=== PATIENT | female | born 1955 | race Caucasian/White ===

== ENCOUNTER 2018-05-22 13:40 | Emergency (ER) | payer MEDICARE, MEDICAID ==
[2018-05-22] MEDS ORDERED: Albuterol/Ipratropium 3.0-0.5 MG/3 ML Neb Soln ONE (13:52)
[2018-05-22] MEDS ORDERED: Sodium Chloride 0.9% 10 ML Syringe FLUSH PRN (13:54)
[2018-05-22] MEDS ORDERED: methylPREDNISolone Sodium Succinate 125 MG/2 ML SDV IVPUSH ONE (13:54)
[2018-05-22] MEDS ORDERED: Albuterol/Ipratropium 3.0-0.5 MG/3 ML Neb Soln NEB ONE (14:04)
[2018-05-22 15:01] LABS: ANION GAP 10.9 mmol/L (10-20)
[2018-05-22] MEDS ORDERED: Take Home: Albuterol 6.7 GM Inhaler, 1 Inhaler Pack INH ONE (15:22)
--- NOTE | 2018-05-22 15:27 | EDM.PDOC ---
ED HPI GENERAL MEDICAL PROBLEM - General Chief Complaint: Respiratory Problem Stated Complaint: SOB,BREATHING HEAVY Time Seen by Provider: 05/22/18 13:46 Source of Information: Reports: Patient, Family History Limitations: Reports: No Limitations - History of Present Illness INITIAL COMMENTS - FREE TEXT/NARRATIVE: Patient presents with complaints of shortness of breath and chest pressure. No radiation of pain. Pain does increase on inspiration and movement, as well as with coughing. Denies prior NM or CVA. She does have history of 1-2 packs per day smoking. Denies COPD, asthma. No recent illnesses, fevers, chills. Denies abdominal pain, headache, changes in LOC. No blood in urine or stool. Regular voiding habits. Onset: Today, Sudden Duration: Heavy Location: Reports: Chest Quality: Reports: Pressure Severity: Mild Improves with: Reports: None Worsens with: Reports: Movement Associated Symptoms: Reports: Shortness of Breath - Related Data Allergies Allergy/AdvReac Type Severity Reaction Status Date / Time codeine Allergy Hives Verified 05/22/18 13:56 Home Meds: Home Meds . [No Known Home Meds] 05/22/18 [History] Past Medical History - Past Surgical History GI Surgical History: Reports: Cholecystectomy Social & Family History - Family History Family Medical History: Noncontributory - Tobacco Use Smoking Status *Q: Current Every Day Smoker Years of Tobacco use: 50 Packs/Tins Daily: 1 - Recreational Drug Use Recreational Drug Use: No ED ROS GENERAL - Review of Systems Review Of Systems: See Below Constitutional: Reports: No Symptoms HEENT: Reports: No Symptoms Respiratory: Reports: Shortness of Breath Cardiovascular: Reports: No Symptoms, Chest Pain, Dyspnea on Exertion Endocrine: Reports: Fatigue GI/Abdominal: Reports: Anorexia : Reports: No Symptoms Musculoskeletal: Reports: No Symptoms Skin: Reports: No Symptoms Neurological: Reports: No Symptoms Psychiatric: Reports: No Symptoms Hematologic/Lymphatic: Reports: No Symptoms Immunologic: Reports: No Symptoms ED EXAM, GENERAL - Physical Exam Exam: See Below Exam Limited By: No Limitations General Appearance: Alert, WD/WN, Anxious, Mild Distress Eye Exam: Bilateral Eye: EOMI, Periorbital Changes, PERRL Ears: Normal TMs Course - Vital Signs Last Recorded V/S: Last Vital Signs Temp 36.6 C 05/22/18 13:44 Pulse 86 05/22/18 13:44 Resp 20 05/22/18 13:44 BP 179/87 H 05/22/18 13:44 Pulse Ox 98 05/22/18 13:44 - Orders/Labs/Meds Orders: Active Orders 24 hr Category Date Time Status EKG Documentation Completion [RC] STAT Care 05/22/18 13:54 Active RT Aerosol Therapy [RC] ASDIRECTED Care 05/22/18 14:04 Active Chest w Cont [CT] Stat Exams 05/22/18 13:54 Ordered Saline Lock Insert [OM.PC] Routine Oth 05/22/18 13:54 Ordered Labs: Laboratory Tests 05/22/18 05/22/18 05/22/18 Range/Units 14:10 14:10 14:17 WBC 8.6 (4.0-10.0) x10^3/uL RBC 4.98 (4.00-5.50) x10^6/uL Hgb 15.6 (12.0-16.0) g/dL Hct 46.5 (33.0-47.0) % MCV 93.4 H (78.0-93.0) fL MCH 31.3 (26.0-32.0) pg MCHC 33.5 (32.0-36.0) g/dL RDW Coeff of Tristen 13.5 (10.0-15.0) % Plt Count 285 (130-400) x10^3/uL Neut % (Auto) 66.5 (50.0-80.0) % Lymph % (Auto) 24.6 L (25.0-50.0) % [place] % (Auto) 7.3 (2.0-11.0) % Eos % (Auto) 1.4 (0.0-4.0) % Baso % (Auto) 0.2 (0.2-1.2) % Sodium 137 (136-145) mmol/L Potassium 3.9 (3.5-5.1) mmol/L Chloride 103 (98-107) mmol/L Carbon Dioxide 27 (21-32) mmol/L Anion Gap 10.9 (10-20) mmol/L BUN 12 (7-18) mg/dL Creatinine 1.0 (0.55-1.02) mg/dL Est Cr Clr Drug Dosing 48.43 mL/min Estimated GFR (MDRD) 56 Glucose 113 H (74-106) mg/dL Calcium 8.5 (8.5-10.1) mg/dL Corrected Calcium 8.98 (8.5-10.1) mg/dL Total Bilirubin 0.4 (0.2-1.0) mg/dL AST 10 L (15-37) U/L ALT 19 (14-59) U/L Alkaline Phosphatase 98 (46-116) U/L Creatine Kinase 48 (26-192) U/L POC Troponin I 0.00 (0.00-0.08) ng/mL NT-Pro-B Natriuret Pep 78 (<=125) pg/mL Total Protein 7.2 (6.4-8.2) g/dL Albumin 3.4 (3.4-5.0) g/dL Globulin 3.8 Albumin/Globulin Ratio 0.89 Meds: Medications Discontinued Medications Generic Name Dose Route Start Last Admin Trade Name Freq PRN Reason Stop Dose Admin Albuterol 1 packet 05/22/18 15:22 05/22/18 15:45 Take Home: Albuterol 6.7 Gm, 1 Inh Pack INH 05/22/18 15:23 1 packet ONETIME ONE Administration Albuterol/Ipratropium Confirm 05/22/18 13:52 05/22/18 14:05 Duoneb 3.0-0.5 Mg/3 Ml Administered 05/22/18 13:53 Not Given Dose 3 ml .ROUTE .STK-MED ONE Albuterol/Ipratropium 3 ml 05/22/18 14:04 05/22/18 14:00 Duoneb 3.0-0.5 Mg/3 Ml NEB 05/22/18 14:05 3 ml ONETIME ONE Administration Methylprednisolone Sodium Succinate 125 mg 05/22/18 13:54 05/22/18 14:05 Solu-Medrol IVPUSH 05/22/18 13:55 125 mg ONETIME ONE Administration Sodium Chloride 10 ml 05/22/18 13:54 Saline Flush FLUSH ASDIRECTED PRN Keep Vein Open - Radiology Interpretation Free Text/Narrative:: Chest CT negative for acute process - Re-Assessments/Exams Free Text/Narrative Re-Assessment/Exam: 05/23/18 00:39 breathing much better after administration of duoneb. Departure - Departure Time of Disposition: 15:31 Disposition: Home, Self-Care 01 Condition: Good Clinical Impression: Reactive airway disease with wheezing Qualifiers: Asthma severity: unspecified severity Asthma persistence: unspecified Asthma complication type: uncomplicated Qualified Code(s): J45.909 - Unspecified asthma , uncomplicated - Discharge Information *PRESCRIPTION DRUG MONITORING PROGRAM REVIEWED*: Not Applicable *COPY OF PRESCRIPTION DRUG MONITORING REPORT IN PATIENT ALEXSANDER: Not Applicable Instructions: Steps to Quit Smoking, Sstt-og-Ibbl, Shortness of Breath, Adult, Pefs-si-Uats Referrals: PCP,None [Primary Care Provider] - Forms: ED Department Discharge Additional Instructions: Your labs were all negative for any acute medical conditions. Your CT results will be called or mailed to you. Follow up with your primary doctor as needed for additional shortness of breath symptoms. I am giving you an inhaler for your shortness of breath. Take 2 puffs as needed every 4-6 hours. Visit with your provider whether or not can go. Please call us with any questions or concerns. - Problem List & Annotations (1) Reactive airway disease with wheezing SNOMED Code(s): 761236215440 Code(s): J45.909 - UNSPECIFIED ASTHMA, UNCOMPLICATED Status: Acute Priority: Medium Qualifiers: Asthma severity: unspecified severity Asthma persistence: unspecified Asthma complication type: uncomplicated Qualified Code(s): J45.909 - Unspecified asthma, uncomplicated - Problem List Review Problem List Initiated/Reviewed/Updated: Yes - My Orders Last 24 Hours: My Active Orders 05/22/18 13:54 EKG Documentation Completion [RC] STAT Chest w Cont [CT] Stat Saline Lock Insert [OM.PC] Routine 05/22/18 14:04 RT Aerosol Therapy [RC] ASDIRECTED - Assessment/Plan Last 24 Hours: My Active Orders 05/22/18 13:54 EKG Documentation Completion [RC] STAT Chest w Cont [CT] Stat Saline Lock Insert [OM.PC] Routine 05/22/18 14:04 RT Aerosol Therapy [RC] ASDIRECTED Assessment:: reactive airway disease Plan: Your labs were all negative for any acute medical conditions. Your CT results will be called or mailed to you. Follow up with your primary doctor as needed for additional shortness of breath symptoms. I am giving you an inhaler for your shortness of breath. Take 2 puffs as needed every 4-6 hours. Visit with your provider whether or not can go. Please call us with any questions or concerns.
== END 2018-05-22 15:45 | disposition home or self-care (01) ==
LOC: VM.ED 13:40
DX: J45.909 Unspecified asthma, uncomplicated (principal); F17.210 Nicotine dependence, cigarettes, uncomplicated; Z88.5 Allergy status to narcotic agent
CPT/HCPCS: 36415; 71260; 80053; 82550; 83880; 84484; 85025; 93005; 94640; 96374; 99285; A9270; J2930

== ENCOUNTER 2018-11-13 06:26 | Emergency (ER) | payer MEDICARE, MEDICAID ==
--- NOTE | 2018-11-13 06:43 | EDM.PDOC ---
<John Cruz - Last Filed: 11/13/18 06:48> ED HPI GENERAL MEDICAL PROBLEM - General Chief Complaint: Upper Extremity Injury/Pain Stated Complaint: left upper arm/shoulder pain Time Seen by Provider: 11/13/18 06:42 Source of Information: Reports: Patient, EMS Notes Reviewed, RN, RN Notes Reviewed History Limitations: Reports: No Limitations - History of Present Illness INITIAL COMMENTS - FREE TEXT/NARRATIVE: Patient is brought to the ED at [facility] via EMS after she fell walking into a convenience store. Patient states she tripped and fell on the entry rug of the store. She states she fell onto her left arm/shoulder. No previous injury or trauma. Patient denies any numbness, tingling, or paresthesia to the left upper extremity. She denies any left wrist or elbow pathology. She has full ROM of the left wrist and left elbow. Patient states most of her pain is in the left upper arm versus left shoulder. She is very reluctant to move her LUE. Patient denies any head injury or trauma. Patient denies any neck or back pain. Onset: Today Onset Date: 11/13/18 Left Shoulder Pain Score (Numeric/FACES): 7 - Related Data Allergies Allergy/AdvReac Type Severity Reaction Status Date / Time codeine Allergy Hives Verified 11/13/18 06:27 Home Meds: Home Meds . [No Known Home Meds] 05/22/18 [History] Past Medical History - Past Health History Medical/Surgical History: Denies Medical/Surgical History - Past Surgical History GI Surgical History: Reports: Cholecystectomy Social & Family History - Family History Family Medical History: Noncontributory - Tobacco Use Smoking Status *Q: Current Every Day Smoker Years of Tobacco use: 47 Packs/Tins Daily: 0.5 Review of Systems - Review of Systems Review Of Systems: See Below Constitutional: Denies: Chills, Fever Respiratory: Denies: Shortness of Breath, Cough Cardiovascular: Denies: Chest Pain, Palpitations Musculoskeletal: Reports: Shoulder Pain, Arm Pain, Muscle Pain Skin: Reports: No Symptoms Neurological: Denies: Numbness, Paresthesia, Tingling ED EXAM, GENERAL - Physical Exam Exam: See Below Exam Limited By: No Limitations General Appearance: Alert, No Apparent Distress Head: Atraumatic, Normocephalic Respiratory/Chest: No Respiratory Distress, Lungs Clear, Normal Breath Sounds Cardiovascular: Normal Peripheral Pulses, Regular Rate, Rhythm Peripheral Pulses: 2+: Radial (L), Radial (R) Extremities: Normal Inspection, Arm Pain, Limited Range of Motion (due to pain) Neurological: Alert, Oriented Skin Exam: Warm, Dry, Intact, Normal Color Course - Vital Signs Last Recorded V/S: Last Vital Signs Temp 35.9 C 11/13/18 06:27 Pulse 78 11/13/18 08:17 Resp 19 11/13/18 08:17 BP 152/79 H 11/13/18 08:17 Pulse Ox 94 L 11/13/18 08:17 - Orders/Labs/Meds Orders: Active Orders 24 hr Category Date Time Status Elbow 2V Lt [CR] Stat Exams 11/13/18 08:14 Ordered Shoulder 1V Lt [CR] Stat Exams 11/13/18 06:47 Taken Shoulder 1V Lt [CR] Stat Exams 11/13/18 07:45 Ordered Meds: Medications Discontinued Medications Generic Name Dose Route Start Last Admin Trade Name Kevin PRN Reason Stop Dose Admin Hydromorphone HCl 1 mg 11/13/18 07:21 11/13/18 07:30 Dilaudid IVPUSH 11/13/18 07:22 1 mg ONETIME ONE Administration Lorazepam 1 mg 11/13/18 07:22 11/13/18 07:40 Ativan IVPUSH 11/13/18 07:23 1 mg ONETIME ONE Administration Departure - Departure Disposition: DC/Tfer to [facility] 02 Clinical Impression: Shoulder dislocation - Discharge Information Referrals: PCP,Unknown [Primary Care Provider] - Forms: ED Department Discharge, Interfacility Transfer EMTALA - Problem List Review Problem List Initiated/Reviewed/Updated: Yes - My Orders Last 24 Hours: My Active Orders 11/13/18 07:45 Shoulder 1V Lt [CR] Stat 11/13/18 08:14 Elbow 2V Lt [CR] Stat - Assessment/Plan Last 24 Hours: My Active Orders 11/13/18 07:45 Shoulder 1V Lt [CR] Stat 11/13/18 08:14 Elbow 2V Lt [CR] Stat <Hasmukh Scott W - Last Filed: 11/13/18 08:33> ED TRAUMA EXTREMITY PROCEDURES - Additional/Other Procedure(s) Other (Free Text) Procedure(s): Pt. was given 1 mg dilaudid IV and as well as 1 mg. of ativan in 0.5mg increments. Pt. was placed in the prone position with the L arm over the edge of the bed. 30# of traction was placed pulling the extremity anteriorly as the scapula was manipulated. This was attempted twice for approx. 30 min. each time. The shoulder continued to be dislocated. Attempted the traction/rotation method as well which was unsuccessful. Course - Radiology Interpretation Free Text/Narrative:: interomedial L shoulder dislocation Departure - Departure Time of Disposition: 08:30 - Assessment/Plan Plan: Unable to reduce shoulder. Contacted [facility] in [place]. Dr. Guo accepted the patient in transfer. She will be transported via ground ambulance. Arranged a ride home for her after it is reduced.
[2018-11-13] MEDS ORDERED: HYDROmorphone 1 MG/ML Syringe IVPUSH ONE (07:21)
[2018-11-13] MEDS ORDERED: LORazepam 2 MG/ML SDV IVPUSH ONE (07:22)
--- NOTE | 2018-11-13 08:57 | CR ---
[id number] RAD/RAD Shoulder Left 1V EXAM: RAD Shoulder Left 1V CLINICAL DATA: POST REDUCTION LEFT SHOULDER COMPARISON: CORRELATION IS MADE WITH THE EARLIER EXAM TODAY. FINDINGS: The shoulder is still dislocated.. IMPRESSION: PERSISTENT DISLOCATION. Jose Byers MD 11/13/18 0856 Thank you for allowing us to participate in the care of your patient.
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
--- NOTE | 2018-11-13 09:28 | CR ---
[id number] RAD/RAD Elbow Left 2V EXAM: RAD Elbow Left 2V CLINICAL DATA: TRAUMA COMPARISON: NO PREVIOUS SIMILAR EXAM IS AVAILABLE. FINDINGS: A single oblique lateral view was obtained. No fracture is seen. Consider further exams if needed.. IMPRESSION: LIMITED STUDY. NO FRACTURE IDENTIFIED. Jose Byers MD 11/13/18 0927 Thank you for allowing us to participate in the care of your patient.
== END 2018-11-13 09:00 | disposition short-term general hospital (02) ==
LOC: VM.ED 06:26
DX: S43.005A Unspecified dislocation of left shoulder joint, initial encounter (principal); F17.210 Nicotine dependence, cigarettes, uncomplicated; Z88.5 Allergy status to narcotic agent; W22.8XXA Striking against or struck by other objects, initial encounter; Y93.01 Activity, walking, marching and hiking
CPT/HCPCS: 73020-LT; 73070-LT; 96374; 96375; 99285; J1170; J2060

== ENCOUNTER 2020-07-17 21:52 | Emergency (ER) | payer MEDICARE, MEDICAID ==
[2020-07-17] MEDS ORDERED: Lidocaine 1% 30 ML SDV INJECT ONE (22:06)
--- NOTE | 2020-07-17 22:34 | EDM.PDOC ---
ED HPI GENERAL MEDICAL PROBLEM - General Chief Complaint: Lower Extremity Injury/Pain Stated Complaint: TOENAIL RIPPED OFF Time Seen by Provider: 07/17/20 22:15 Source of Information: Reports: Patient History Limitations: Reports: No Limitations - History of Present Illness INITIAL COMMENTS - FREE TEXT/NARRATIVE: Patient comes emergency department today with complaints of an injury to her right second toenail. This patient is unable to trim her toenails and has not done so for years. She has very long torturous toenails on her bilateral feet. Tonight when she was trying to get into bed she caught 1 of the toenails on the sheets and it pretty much ripped the entire nail plate off the toe. There was no other trauma to the area. Her tetanus is up to date she reports. - Related Data Allergies Allergy/AdvReac Type Severity Reaction Status Date / Time codeine Allergy Hives Verified 07/17/20 22:01 Home Meds: Home Meds . [No Known Home Meds] 05/22/18 [History] Past Medical History - Past Health History Medical/Surgical History: Denies Medical/Surgical History - Past Surgical History GI Surgical History: Reports: Cholecystectomy Social & Family History - Family History Family Medical History: Noncontributory - Tobacco Use Smoking Status *Q: Current Every Day Smoker Years of Tobacco use: 50 Packs/Tins Daily: 0.5 Review of Systems - Review of Systems Review Of Systems: Comprehensive ROS is negative, except as noted in HPI. ED EXAM, GENERAL - Physical Exam Exam: See Below Exam Limited By: No Limitations General Appearance: Alert, WD/WN, No Apparent Distress Respiratory/Chest: No Respiratory Distress Cardiovascular: Normal Peripheral Pulses Extremities: No: Normal Inspection (Examination of the right foot. This foot is in clear hygienic arrest with quite a bit of debris between the toes and just overt dirt. The toenails of all toes of bilateral feet appear to be fungally infected very thick overgrown over the end of the toes some up to 2 cm in length. Some have wrapped around and curled around the end of the toes. There is no acute infectious process. The second toe of the right foot has a very similar presentation of the very overgrowth fungal type toenail that has been completely avulsed from the entire nail plate. Is being held on just by some overgrowth of skin at the distal aspect of the nail matrix. The nail matrix itself is not damage. There is a small amount of bleeding from that area. The toe is very sensitive. There is no overt bony deformity and CMS is intact appropriately.) Neurological: Alert, Oriented Skin Exam: Warm, Dry, Intact, Normal Color Course - Vital Signs Last Recorded V/S: Last Vital Signs Temp 97 F 07/17/20 22:02 Pulse 90 07/17/20 22:02 Resp 20 07/17/20 22:02 BP 134/87 07/17/20 22:02 Pulse Ox 97 07/17/20 22:02 - Orders/Labs/Meds Meds: Medications Discontinued Medications Generic Name Dose Route Start Last Admin Trade Name Kevin PRN Reason Stop Dose Admin Lidocaine HCl 30 ml 07/17/20 22:06 07/17/20 22:27 Xylocaine-Mpf 1% INJECT 07/17/20 22:07 30 ml ONETIME ONE Administration - Re-Assessments/Exams Free Text/Narrative Re-Assessment/Exam: 07/17/20 22:42 Risk and benefits of a digital block were explained to the patient. Verbal consent was obtained. The base of the second toe on the right foot was with Betadine and allowed to the appropriate time period. I then injected 1.5 mils of 1% lidocaine without epinephrine medially and laterally on the base of the right toe. Good anesthesia was obtained. I then was able to further clean and inspect the nail matrix. The toenail is quite overgrown with fungus and I am unable to replace the toenail to protect the nail matrix due to the overgrowth and the fungal nature of this toenail. I did remove what was left of the distal aspect of the nail that was just minimally hanging on of the nailbed by some skin. The nail matrix is non- injured there is a small amount of bleeding. Some Surgicel was placed in the area and hemostasis was obtained. Bacitracin and bandage was applied. I then turned my attention to the rather impressively overgrown toenails of the rest of the toes bilateral feet. with the use of a side snips I trimmed all the toenails down to an appropriate length. She is not diabetic. There was no complication with this. With the patient that she needs to really improve the hygiene to her feet with the debris and overt dirt that is on her feet. This increases her risk for infection to her feet. We will also refer her to either primary care or [facility] to help with foot care at home as she is unable to do this. Watch for any signs of infection. She needs to protect the toe because this nail matrix that is exposed is going to be quite sensitive until it heals over. She is understanding of this and her questions are answered. Departure - Departure Time of Disposition: 22:31 Disposition: Home, Self-Care 01 Clinical Impression: Traumatic avulsion of nail plate of toe Qualifiers: Encounter type: initial encounter Qualified Code(s): S91.209A - Unspecified open wound of unspecified toe(s) with damage to nail, initial encounter - Discharge Information Instructions: Fingernail or Toenail Removal, Adult, Care After Referrals: Loc Woods PA-C [Primary Care Provider] - Forms: ED Department Discharge Additional Instructions: Leave the dressing on until tomorrow afternoon. Then twice daily soak your foot in warm soap adore dish soap water. Bacitracin and bandage until healed. Protect that toe from trauma it is going to be really sensitive for a few weeks. Watch for infection. Follow up with PCP if any concerns. Sepsis Event Note (ED) - Evaluation Sepsis Screening Result: No Definite Risk - Focused Exam Vital Signs: Vital Signs Temp Pulse Resp BP Pulse Ox 07/17/20 22:02 97 F 90 20 134/87 97 - Assessment/Plan Assessment:: Complete avulsion of the entire nail plate of the left 2nd toe nail. Toe nail trimming of all toes bilateral feet due to severe other grown.
== END 2020-07-17 22:35 | disposition home or self-care (01) ==
LOC: VM.ED 21:52
DX: S91.204A Unspecified open wound of right lesser toe(s) with damage to nail, initial encounter (principal); F17.210 Nicotine dependence, cigarettes, uncomplicated; Z88.5 Allergy status to narcotic agent; X58.XXXA Exposure to other specified factors, initial encounter
CPT/HCPCS: 11730; 99283; 99283-25; J2001

== ENCOUNTER 2021-06-29 01:40 | Emergency (ER) | payer MEDICARE, MEDICAID ==
[2021-06-29] MEDS ORDERED: Sodium Chloride 0.9% 10 ML Syringe FLUSH PRN (02:17)
--- NOTE | 2021-06-29 02:29 | EDM.PDOC ---
ED HPI GENERAL MEDICAL PROBLEM - General Chief Complaint: General Stated Complaint: dizziness Time Seen by Provider: 06/29/21 01:40 Source of Information: Reports: Patient History Limitations: Reports: No Limitations - History of Present Illness INITIAL COMMENTS - FREE TEXT/NARRATIVE: Patient comes in the emergency department with dizziness and shortness of breath. Patient states that she woke up to use the bathroom and when she went to sit up she began to get dizzy. She states that the dizziness has become much better however the shortness of breath is continued. Patient told nursing staff that she has had intermittent cough with productivity and shortness of breath for the last few days. Patient denies having any fever, nausea, or chills. Patient does not have a history of COVID-19. Patient denies any active chest pain, shortness of breath at rest, abdominal pain, genitourinary concerns, peripheral edema. Onset: Sudden Location: Reports: Chest Quality: Reports: Ache Severity: Moderate Improves with: Reports: Rest Worsens with: Reports: Movement Context: Reports: Other Associated Symptoms: Reports: No Other Symptoms - Related Data Allergies Allergy/AdvReac Type Severity Reaction Status Date / Time codeine Allergy Hives Verified 07/17/20 22:01 Home Meds: Home Meds . [No Known Home Meds] 05/22/18 [History] Past Medical History - Past Health History Medical/Surgical History: Denies Medical/Surgical History - Past Surgical History GI Surgical History: Reports: Cholecystectomy Social & Family History - Family History Family Medical History: No Pertinent Family History ED ROS GENERAL - Review of Systems Review Of Systems: Comprehensive ROS is negative, except as noted in HPI. Constitutional: Reports: No Symptoms HEENT: Reports: No Symptoms Respiratory: Reports: Shortness of Breath, Pleuritic Chest Pain, Cough, Sputum Cardiovascular: Reports: No Symptoms Endocrine: Reports: No Symptoms GI/Abdominal: Reports: No Symptoms : Reports: No Symptoms Musculoskeletal: Reports: No Symptoms Skin: Reports: No Symptoms Neurological: Reports: Dizziness Psychiatric: Reports: No Symptoms Hematologic/Lymphatic: Reports: No Symptoms Immunologic: Reports: No Symptoms ED EXAM, GENERAL - Physical Exam Exam: See Below Exam Limited By: No Limitations General Appearance: Alert, WD/WN, No Apparent Distress Eye Exam: Bilateral Eye: PERRL Throat/Mouth: Normal Inspection, Normal Lips Head: Atraumatic, Normocephalic Neck: Normal Inspection, Supple, Non-Tender, Full Range of Motion Respiratory/Chest: No Respiratory Distress, Chest Non-Tender, Decreased Breath Sounds Cardiovascular: Normal Peripheral Pulses, Regular Rate, Rhythm Back Exam: Normal Inspection, Full Range of Motion Extremities: Normal Inspection, Normal Range of Motion, Non-Tender, Normal Capillary Refill Psychiatric: Normal Affect, Normal Mood Skin Exam: Warm, Dry, Intact, Normal Color #1 Interpretation EKG Date: 06/29/21 Rhythm: NSR P-Wave: Present QRS: Normal ST-T: Normal QT: Normal Comparison: NA - No Prior EKG Course - Orders/Labs/Meds Orders: Active Orders 24 hr Category Date Time Status EKG Documentation Completion [RC] STAT Care 06/29/21 02:17 Ordered Chest 1V Frontal [CR] Stat Exams 06/29/21 02:17 Ordered CBC WITH AUTO DIFF [HEME] Stat Lab 06/29/21 02:17 Ordered COMPREHENSIVE METABOLIC PN,CMP [CHEM] Stat Lab 06/29/21 02:17 Ordered CORONAVIRUS COVID-19 RAPID [MOLEC] Stat Lab 06/29/21 02:18 Ordered INR,PT,PROTHROMBIN TIME [COAG] Stat Lab 06/29/21 02:17 Ordered LACTIC ACID [CHEM] Stat Lab 06/29/21 02:17 Ordered PRO B-TYPE NATRIUR PEPT,BNPPRO [CHEM] Stat Lab 06/29/21 02:17 Ordered TROPONIN I HIGH SENSITIVITY [CHEM] Stat Lab 06/29/21 02:17 Ordered Sodium Chloride 0.9% [Saline Flush] Med 06/29/21 02:17 Ordered 10 ml FLUSH ASDIRECTED PRN Peripheral IV Insertion Adult [OM.PC] Stat Oth 06/29/21 02:17 Ordered Medication Orders Sodium Chloride (Sodium Chloride 0.9% 10 Ml Syringe) 10 ml FLUSH ASDIRECTED PRN PRN Reason: Keep Vein Open Meds: Medications Generic Name Dose Route Start Last Admin Trade Name Freq PRN Reason Stop Dose Admin Sodium Chloride 10 ml 06/29/21 02:17 Sodium Chloride 0.9% 10 Ml Syringe FLUSH ASDIRECTED PRN Keep Vein Open Departure - Departure Time of Disposition: 03:00 Disposition: Home, Self-Care 01 Condition: Good Clinical Impression: Vertigo URI (upper respiratory infection) Qualifiers: URI type: unspecified viral URI Qualified Code(s): J06.9 - Acute upper respiratory infection, unspecified - Discharge Information *PRESCRIPTION DRUG MONITORING PROGRAM REVIEWED*: Not Applicable *COPY OF PRESCRIPTION DRUG MONITORING REPORT IN PATIENT ALEXSANDER: Not Applicable Instructions: Viral Respiratory Infection, [id number], Vertigo, [id number] Additional Instructions: 1. rest 2. increase your water intake 3. Continue all at home medications 4. Activity and diet as tolerated 5. Can take over the counter Tylenol for any pain or discomfort 6. Follow up with PCP if symptoms continue, return, or progress 7. Call with any questions or concerns 8. Can take flonase to help with decongestion - My Orders Last 24 Hours: My Active Orders 06/29/21 02:17 EKG Documentation Completion [RC] STAT Chest 1V Frontal [CR] Stat CBC WITH AUTO DIFF [HEME] Stat COMPREHENSIVE METABOLIC PN,CMP [CHEM] Stat INR,PT,PROTHROMBIN TIME [COAG] Stat LACTIC ACID [CHEM] Stat PRO B-TYPE NATRIUR PEPT,BNPPRO [CHEM] Stat TROPONIN I HIGH SENSITIVITY [CHEM] Stat Sodium Chloride 0.9% [Saline Flush] 10 ml FLUSH ASDIRECTED PRN Peripheral IV Insertion Adult [OM.PC] Stat 06/29/21 02:18 CORONAVIRUS COVID-19 RAPID [MOLEC] Stat - Assessment/Plan Last 24 Hours: My Active Orders 06/29/21 02:17 EKG Documentation Completion [RC] STAT Chest 1V Frontal [CR] Stat CBC WITH AUTO DIFF [HEME] Stat COMPREHENSIVE METABOLIC PN,CMP [CHEM] Stat INR,PT,PROTHROMBIN TIME [COAG] Stat LACTIC ACID [CHEM] Stat PRO B-TYPE NATRIUR PEPT,BNPPRO [CHEM] Stat TROPONIN I HIGH SENSITIVITY [CHEM] Stat Sodium Chloride 0.9% [Saline Flush] 10 ml FLUSH ASDIRECTED PRN Peripheral IV Insertion Adult [OM.PC] Stat 06/29/21 02:18 CORONAVIRUS COVID-19 RAPID [MOLEC] Stat Assessment:: 1. Dizzy 2. Chest congestion 3. Plan: 1. Labs completed in the ER. Results reviewed with the patient 2. chest xray completed in ER. 5. Meclazine given in ER with relief 6. Patient and nursing staff was updated regarding the plan of care 7. Education provided the patient regarding activity, diet, rest, [id number] medication modalities, and follow-up care was provided 8. Patient and family are agreeable to the above plan of care 9. All questions and concerns were addressed with the patient and family prior to discharge 10. did offer to the patient to remain in the hospital for observation if the dizziness or SOB return however, patient is not willing and would like to go home.
[2021-06-29] MEDS ORDERED: Meclizine 25 MG Tab PO ONE (02:36)
[2021-06-29 02:42] LABS: CHLORIDE,CL 102 mmol/L (98-107); SODIUM,NA 138 mmol/L (136-145)
[2021-06-29 02:43] LABS: ANION GAP 12.7 mmol/L (5-15)
--- NOTE | 2021-06-29 09:02 | CR ---
[id number] RAD/RAD Chest Portable EXAM: RAD Chest Portable INDICATION: SOB COMPARISON: CT from 2018. DISCUSSION/IMPRESSION: Known shrapnel projects over the cardiac silhouette left of midline. Examination is otherwise normal. Case Mak MD 06/29/21 0900 Thank you for allowing us to participate in the care of your patient.
== END 2021-06-29 03:04 | disposition home or self-care (01) ==
LOC: VM.ED 01:40
DX: R42 Dizziness and giddiness (principal); J06.9 Acute upper respiratory infection, unspecified; Z88.5 Allergy status to narcotic agent
CPT/HCPCS: 71045; 80053; 83605; 83880; 84484; 85025; 85610; 93005; 93010; 99284; 99285-25; A9270-GY; U0002

== ENCOUNTER 2022-12-13 05:50 | Emergency (ER) | payer MEDICARE, MEDICAID ==
[2022-12-13] MEDS ORDERED: fentaNYL 50 MCG/ML SDV IVPUSH ONE ×2 (06:35→07:19)
== END 2022-12-13 07:40 | disposition short-term general hospital (02) ==
LOC: VM.ED 05:50
DX: S43.014A Anterior dislocation of right humerus, initial encounter (principal); I10 Essential (primary) hypertension; Z88.5 Allergy status to narcotic agent; Z79.899 Other long term (current) drug therapy; Z72.0 Tobacco use; W00.0XXA Fall on same level due to ice and snow, initial encounter
CPT/HCPCS: 73030-RT; 73060-RT; 96374; 96376; 99283; 99284-25; J3010

== ENCOUNTER 2023-06-14 18:30 | Emergency (ER) | payer MEDICARE, MEDICAID ==
[2023-06-14] MEDS ORDERED: ceFAZolin 1 GM Vial IM ONE (19:06)
[2023-06-14 19:09] LABS: BASOPHILS PERCENT AUTO 0.2 % (0.2-1.2); EOSINOPHILS ABSOLUTE AUTO 0.3 x10^3/uL (0.0-0.5); HEMATOCRIT 40.8 % (33.0-47.0); HEMOGLOBIN 14.2 g/dL (12.0-16.0); IMMATURE GRAN ABSOLUTE AUTO 0.04 x10^3/uL (0.00-0.07); LYMPHOCYTES ABSOLUTE AUTO 2.3 x10^3/uL (1.0-4.8); LYMPHOCYTES PERCENT AUTO 26.4 % (25.0-50.0); MEAN CORPUSCULAR HEMOGLOBIN 30.5 pg (26.0-32.0); MEAN CORPUSCULAR HGB CONC 34.8 g/dL (32.0-36.0); MEAN CORPUSCULAR VOLUME 87.6 fL (78.0-93.0); MONOCYTES ABSOLUTE AUTO 0.6 x10^3/uL (0.0-0.8); MONOCYTES PERCENT AUTO 7.3 % (2.0-11.0); NEUTROPHILS ABSOLUTE AUTO 5.5 x10^3/uL (1.8-7.7); NEUTROPHILS PERCENT AUTO 62.6 % (50.0-80.0); PLATELET COUNT,PLT 280 x10^3/uL (130-400); RED BLOOD CELL COUNT 4.66 x10^6/uL (4.00-5.50); WHITE BLOOD CELL COUNT,WBC 8.8 x10^3/uL (4.0-10.0)
[2023-06-14 19:22] LABS: APPEARANCE,URINE CLEAR (CLEAR); BILIRUBIN,URINE NEGATIVE (NEGATIVE); COLOR,URINE LIGHT YELLOW (YELLOW); GLUCOSE,URINE NEGATIVE (NEGATIVE); KETONES,URINE NEGATIVE (NEGATIVE); LEUKOCYTE ESTERASE,URINE NEGATIVE (NEGATIVE); NITRITE,URINE NEGATIVE (NEGATIVE); OCCULT BLOOD,URINE TRACE-INTACT (NEGATIVE); PH,URINE 5.5 (5.0-8.0); PROTEIN,URINE NEGATIVE (NEGATIVE); UROBILINOGEN,URINE 0.2 EU/dL (0.2)
[2023-06-14 19:34] LABS: A/G RATIO 0.92; ALANINE AMINOTRANSFERASE,ALT 18 U/L (14-59); ALBUMIN 3.3 g/dL (3.4-5.0); ALKALINE PHOSPHATASE 100 U/L (46-116); ASPARTATE AMNIOTRANSFERASE,AST 13 U/L (15-37); BILIRUBIN TOTAL 0.3 mg/dL (0.2-1.0); BLOOD UREA NITROGEN,BUN 28 mg/dL (7-18); C-REACTIVE PROTEIN 0.64 mg/dL (<=0.30); CALCIUM 8.8 mg/dL (8.5-10.1); CARBON DIOXIDE,CO2 28 mmol/L (21-32); CHLORIDE,CL 100 mmol/L (98-107); CREATININE 1.2 mg/dL (0.55-1.02); GLUCOSE RANDOM 149 mg/dL (70-99); PROTEIN TOTAL,TP 6.9 g/dL (6.4-8.2); SODIUM,NA 136 mmol/L (136-145)
[2023-06-14 19:50] LABS: ESTIMATED GFR 49 mL/min (>=60)
[2023-06-14 20:03] LABS: BACTERIA,URINE NOT SEEN /HPF (NOT SEEN); MUCUS,URINE NOT SEEN /LPF (NOT SEEN); RBC,URINE 0-5 /HPF (NOT SEEN); SQUAMOUS EPITHELIAL CELLS,UR FEW /HPF (NOT SEEN); WBC,URINE 0-5 /HPF (NOT SEEN)
[2023-06-14 21:19] LABS: CORONAVIRUS COVID-19 NAA NEGATIVE (NEGATIVE); INFLUENZA A NAA NEGATIVE (NEGATIVE); INFLUENZA B NAA NEGATIVE (NEGATIVE)
== END 2023-06-14 20:37 | disposition home or self-care (01) ==
LOC: VM.ED 18:30
DX: R53.1 Weakness (principal); I10 Essential (primary) hypertension; Z88.5 Allergy status to narcotic agent; Z20.822 Contact with and (suspected) exposure to COVID-19
CPT/HCPCS: 0240U; 80053; 81001; 84484; 85025; 86140; 93005; 93010; 99284; 99285

== ENCOUNTER 2024-03-12 16:43 | Emergency (ER) | payer MEDICARE, MEDICAID ==
[2024-03-12 17:19] LABS: BASOPHILS PERCENT AUTO 0.2 % (0.2-1.2); EOSINOPHILS ABSOLUTE AUTO 0.1 x10^3/uL (0.0-0.5); HEMATOCRIT 41.1 % (33.0-47.0); HEMOGLOBIN 13.7 g/dL (12.0-16.0); IMMATURE GRAN ABSOLUTE AUTO 0.01 x10^3/uL (0.00-0.07); LYMPHOCYTES ABSOLUTE AUTO 1.6 x10^3/uL (1.0-4.8); LYMPHOCYTES PERCENT AUTO 31.3 % (25.0-50.0); MEAN CORPUSCULAR HEMOGLOBIN 29.9 pg (26.0-32.0); MEAN CORPUSCULAR HGB CONC 33.3 g/dL (32.0-36.0); MEAN CORPUSCULAR VOLUME 89.7 fL (78.0-93.0); MONOCYTES ABSOLUTE AUTO 0.4 x10^3/uL (0.0-0.8); MONOCYTES PERCENT AUTO 7.7 % (2.0-11.0); NEUTROPHILS ABSOLUTE AUTO 2.9 x10^3/uL (1.8-7.7); NEUTROPHILS PERCENT AUTO 58.6 % (50.0-80.0); PLATELET COUNT,PLT 177 x10^3/uL (130-400); RED BLOOD CELL COUNT 4.58 x10^6/uL (4.00-5.50)
[2024-03-12] MEDS: Alum Hydrox/Mag Hydrox/Simeth 30 ML, Lidocaine 2% 15 ML, Promethazine 12.5 MG PO ONE (17:28)
[2024-03-12 17:37] LABS: APPEARANCE,URINE CLEAR (CLEAR); BILIRUBIN,URINE NEGATIVE (NEGATIVE); COLOR,URINE YELLOW (YELLOW); GLUCOSE,URINE NEGATIVE (NEGATIVE); KETONES,URINE NEGATIVE (NEGATIVE); LEUKOCYTE ESTERASE,URINE NEGATIVE (NEGATIVE); NITRITE,URINE NEGATIVE (NEGATIVE); OCCULT BLOOD,URINE TRACE-INTACT (NEGATIVE); PH,URINE 5.5 (5.0-8.0); PROTEIN,URINE NEGATIVE (NEGATIVE); UROBILINOGEN,URINE 0.2 EU/dL (0.2)
[2024-03-12 17:38] LABS: SQUAMOUS EPITHELIAL CELLS,UR RARE /HPF (NOT SEEN); WBC,URINE 0-5 /HPF (NOT SEEN)
[2024-03-12 17:39] LABS: BACTERIA,URINE RARE /HPF (NOT SEEN); MUCUS,URINE NOT SEEN /LPF (NOT SEEN)
[2024-03-12 17:43] LABS: A/G RATIO 0.86; ALANINE AMINOTRANSFERASE,ALT 52 U/L (14-59); ALBUMIN 3.1 g/dL (3.4-5.0); ALKALINE PHOSPHATASE 99 U/L (46-116); ASPARTATE AMNIOTRANSFERASE,AST 33 U/L (15-37); BILIRUBIN TOTAL 0.3 mg/dL (0.2-1.0); BLOOD UREA NITROGEN,BUN 21 mg/dL (7-18); CALCIUM 8.4 mg/dL (8.5-10.1); CARBON DIOXIDE,CO2 25 mmol/L (21-32); CHLORIDE,CL 101 mmol/L (98-107); CREATININE 1.2 mg/dL (0.55-1.02); GLUCOSE RANDOM 119 mg/dL (70-99); PROTEIN TOTAL,TP 6.7 g/dL (6.4-8.2); SODIUM,NA 137 mmol/L (136-145)
[2024-03-12 17:44] LABS: ESTIMATED GFR 48 mL/min (>=60)
== END 2024-03-12 17:58 | disposition home or self-care (01) ==
LOC: VM.ED 16:43
DX: R10.13 Epigastric pain (principal); I10 Essential (primary) hypertension; Z88.5 Allergy status to narcotic agent; Z79.899 Other long term (current) drug therapy; Z90.49 Acquired absence of other specified parts of digestive tract
CPT/HCPCS: 36415; 71045; 80053; 81001; 84484; 85025; 93005; 93010; 99284; 99285; A9270-GY

== ENCOUNTER 2024-03-14 11:34 | Emergency (ER) | payer MEDICARE, MEDICAID ==
[2024-03-14 11:52] LABS: BASOPHILS PERCENT AUTO 0.2 % (0.2-1.2); EOSINOPHILS PERCENT AUTO 0.7 % (0.0-4.0); HEMATOCRIT 44.7 % (33.0-47.0); IMMATURE GRAN ABSOLUTE AUTO 0.03 x10^3/uL (0.00-0.07); LYMPHOCYTES ABSOLUTE AUTO 1.4 x10^3/uL (1.0-4.8); LYMPHOCYTES PERCENT AUTO 23.5 % (25.0-50.0); MEAN CORPUSCULAR HEMOGLOBIN 29.7 pg (26.0-32.0); MEAN CORPUSCULAR HGB CONC 33.6 g/dL (32.0-36.0); MEAN CORPUSCULAR VOLUME 88.5 fL (78.0-93.0); MONOCYTES ABSOLUTE AUTO 0.4 x10^3/uL (0.0-0.8); MONOCYTES PERCENT AUTO 5.7 % (2.0-11.0); NEUTROPHILS ABSOLUTE AUTO 4.2 x10^3/uL (1.8-7.7); NEUTROPHILS PERCENT AUTO 69.4 % (50.0-80.0); PLATELET COUNT,PLT 193 x10^3/uL (130-400); RED BLOOD CELL COUNT 5.05 x10^6/uL (4.00-5.50); WHITE BLOOD CELL COUNT,WBC 6.1 x10^3/uL (4.0-10.0)
[2024-03-14 12:14] LABS: A/G RATIO 0.92; ALANINE AMINOTRANSFERASE,ALT 43 U/L (14-59); ALBUMIN 3.6 g/dL (3.4-5.0); ALKALINE PHOSPHATASE 84 U/L (46-116); ASPARTATE AMNIOTRANSFERASE,AST 17 U/L (15-37); BILIRUBIN TOTAL 0.4 mg/dL (0.2-1.0); BLOOD UREA NITROGEN,BUN 13 mg/dL (7-18); CALCIUM 9.5 mg/dL (8.5-10.1); CARBON DIOXIDE,CO2 26 mmol/L (21-32); CHLORIDE,CL 99 mmol/L (98-107); CREATININE 1.1 mg/dL (0.55-1.02); GLUCOSE RANDOM 116 mg/dL (70-99); POTASSIUM,K 3.3 mmol/L (3.5-5.1); PROTEIN TOTAL,TP 7.5 g/dL (6.4-8.2); SODIUM,NA 138 mmol/L (136-145)
[2024-03-14 12:15] LABS: ANION GAP 16.3 mmol/L (5-15); ESTIMATED GFR 54 mL/min (>=60)
== END 2024-03-14 12:45 | disposition home or self-care (01) ==
LOC: VM.ED 11:34
DX: R05.1 Acute cough (principal); I10 Essential (primary) hypertension; F17.210 Nicotine dependence, cigarettes, uncomplicated; Z88.5 Allergy status to narcotic agent; Z90.49 Acquired absence of other specified parts of digestive tract; Z79.899 Other long term (current) drug therapy
CPT/HCPCS: 36415; 71045; 80053; 84484; 85025; 93005; 93010; 99284

== ENCOUNTER 2024-05-07 14:19 | Emergency (ER) | payer MEDICARE, MEDICAID ==
[2024-05-07] MEDS ORDERED: Sodium Chloride 0.9% 10 ML Syringe FLUSH PRN (14:41)
[2024-05-07] MEDS: Ondansetron 4 MG/2 ML SDV IVPUSH ONE (14:46)
[2024-05-07] MEDS: Morphine 2 MG/ML SYRINGE IVPUSH ONE (14:47)
[2024-05-07 14:51] LABS: BASOPHILS PERCENT AUTO 0.1 % (0.2-1.2); EOSINOPHILS PERCENT AUTO 0.1 % (0.0-4.0); HEMATOCRIT 43.3 % (33.0-47.0); HEMOGLOBIN 14.8 g/dL (12.0-16.0); IMMATURE GRAN ABSOLUTE AUTO 0.06 x10^3/uL (0.00-0.07); LYMPHOCYTES PERCENT AUTO 3.3 % (25.0-50.0); MEAN CORPUSCULAR HEMOGLOBIN 30.5 pg (26.0-32.0); MEAN CORPUSCULAR HGB CONC 34.2 g/dL (32.0-36.0); MEAN CORPUSCULAR VOLUME 89.3 fL (78.0-93.0); MONOCYTES ABSOLUTE AUTO 0.6 x10^3/uL (0.0-0.8); MONOCYTES PERCENT AUTO 4.2 % (2.0-11.0); NEUTROPHILS ABSOLUTE AUTO 13.2 x10^3/uL (1.8-7.7); NEUTROPHILS PERCENT AUTO 91.9 % (50.0-80.0); PLATELET COUNT,PLT 275 x10^3/uL (130-400); RED BLOOD CELL COUNT 4.85 x10^6/uL (4.00-5.50); WHITE BLOOD CELL COUNT,WBC 14.4 x10^3/uL (4.0-10.0)
[2024-05-07 15:01] LABS: LYMPHOCYTES ABSOLUTE AUTO 0.5 x10^3/uL (1.0-4.8)
[2024-05-07 15:04] LABS: APPEARANCE,URINE CLEAR (CLEAR); BILIRUBIN,URINE NEGATIVE (NEGATIVE); COLOR,URINE YELLOW (YELLOW); GLUCOSE,URINE NEGATIVE (NEGATIVE); KETONES,URINE NEGATIVE (NEGATIVE); LEUKOCYTE ESTERASE,URINE TRACE (NEGATIVE); NITRITE,URINE NEGATIVE (NEGATIVE); OCCULT BLOOD,URINE TRACE-LYSED (NEGATIVE); PH,URINE 5.5 (5.0-8.0); PROTEIN,URINE NEGATIVE (NEGATIVE); UROBILINOGEN,URINE 0.2 EU/dL (0.2)
[2024-05-07 15:10] LABS: BACTERIA,URINE RARE /HPF (NOT SEEN); HYALINE CASTS,URINE RARE; MUCUS,URINE NOT SEEN /LPF (NOT SEEN); RBC,URINE 0-5 /HPF (NOT SEEN); SQUAMOUS EPITHELIAL CELLS,UR MODERATE /HPF (NOT SEEN); WBC,URINE 0-5 /HPF (NOT SEEN)
[2024-05-07 15:14] LABS: A/G RATIO 0.83; ALBUMIN 3.4 g/dL (3.4-5.0); ANION GAP 17.6 mmol/L (5-15); BILIRUBIN TOTAL 0.2 mg/dL (0.2-1.0); CALCIUM 9.3 mg/dL (8.5-10.1); CREATININE 1.6 mg/dL (0.55-1.02); EST CRCL DRUG DOSING (CG) 29.02 mL/min; POTASSIUM,K 3.6 mmol/L (3.5-5.1); PROTEIN TOTAL,TP 7.5 g/dL (6.4-8.2)
[2024-05-07] MEDS: Iopamidol 612 MG/ML 100 ML Bottle IVPUSH ONE (15:34)
== END 2024-05-07 15:35 | disposition left against medical advice (07) ==
LOC: VM.ED 14:19
DX: R10.84 Generalized abdominal pain (principal); I10 Essential (primary) hypertension; Z90.49 Acquired absence of other specified parts of digestive tract; Z79.82 Long term (current) use of aspirin; Z88.5 Allergy status to narcotic agent
CPT/HCPCS: 80053; 81001; 83690; 84484; 85025; 93005; 93010; 96374; 96375; 99284; J2270; J2405

== ENCOUNTER 2024-05-08 05:58 | Emergency (ER) | payer MEDICARE, MEDICAID ==
[2024-05-08 06:17] LABS: BASOPHILS PERCENT AUTO 0.1 % (0.2-1.2); EOSINOPHILS ABSOLUTE AUTO 0.1 x10^3/uL (0.0-0.5); EOSINOPHILS PERCENT AUTO 0.8 % (0.0-4.0); HEMATOCRIT 42.9 % (33.0-47.0); HEMOGLOBIN 14.3 g/dL (12.0-16.0); IMMATURE GRAN ABSOLUTE AUTO 0.02 x10^3/uL (0.00-0.07); LYMPHOCYTES ABSOLUTE AUTO 1.3 x10^3/uL (1.0-4.8); LYMPHOCYTES PERCENT AUTO 10.7 % (25.0-50.0); MEAN CORPUSCULAR HEMOGLOBIN 30.2 pg (26.0-32.0); MEAN CORPUSCULAR HGB CONC 33.3 g/dL (32.0-36.0); MEAN CORPUSCULAR VOLUME 90.7 fL (78.0-93.0); MONOCYTES ABSOLUTE AUTO 0.6 x10^3/uL (0.0-0.8); NEUTROPHILS ABSOLUTE AUTO 10.1 x10^3/uL (1.8-7.7); NEUTROPHILS PERCENT AUTO 83.2 % (50.0-80.0); PLATELET COUNT,PLT 254 x10^3/uL (130-400); RED BLOOD CELL COUNT 4.73 x10^6/uL (4.00-5.50); WHITE BLOOD CELL COUNT,WBC 12.2 x10^3/uL (4.0-10.0)
[2024-05-08 06:34] LABS: A/G RATIO 0.8; ALBUMIN 3.2 g/dL (3.4-5.0); BILIRUBIN TOTAL 0.4 mg/dL (0.2-1.0); CALCIUM 8.9 mg/dL (8.5-10.1); CREATININE 1.5 mg/dL (0.55-1.02); EST CRCL DRUG DOSING (CG) 29.7 mL/min; POTASSIUM,K 3.9 mmol/L (3.5-5.1); PROTEIN TOTAL,TP 7.2 g/dL (6.4-8.2)
[2024-05-08 06:35] LABS: ANION GAP 12.9 mmol/L (5-15)
[2024-05-08] MEDS: Iopamidol 612 MG/ML 100 ML Bottle IVPUSH ONE (07:22)
[2024-05-08] MEDS: Sodium Chloride 0.9% 1,000 ML IV ONE (07:59)
== END 2024-05-08 08:36 | disposition home or self-care (01) ==
LOC: VM.ED 05:58
DX: K57.32 Diverticulitis of large intestine without perforation or abscess without bleeding (principal); I10 Essential (primary) hypertension; Z79.82 Long term (current) use of aspirin; Z88.5 Allergy status to narcotic agent
CPT/HCPCS: 74177; 80053; 83690; 85025; 99284; J7030; Q9967

== ENCOUNTER 2024-08-08 17:28 | Emergency (ER) | payer MEDICARE, MEDICAID ==
[2024-08-08] MEDS: Triamcinolone Acetonide 0.1% Crm 15 GM Tube TOP ONE (17:45)
[2024-08-08] MEDS: diphenhydrAMINE 25 MG Cap PO ONE (17:45)
== END 2024-08-08 17:45 | disposition home or self-care (01) ==
LOC: VM.ED 17:28
DX: T63.441A Toxic effect of venom of bees, accidental (unintentional), initial encounter (principal); I10 Essential (primary) hypertension; F17.210 Nicotine dependence, cigarettes, uncomplicated; Z90.49 Acquired absence of other specified parts of digestive tract; Z79.82 Long term (current) use of aspirin; Z79.899 Other long term (current) drug therapy; Z88.5 Allergy status to narcotic agent
CPT/HCPCS: 99282; 99283; A9270-GY